=== PATIENT | female | born 1945 | race Caucasian/White ===

== ENCOUNTER 2017-05-07 13:54 | Outpatient (RCR) | payer MEDICARE, BC | END 2017-05-12 | LOC: RESP 13:54 | PROVIDERS: ATTEND Internal Medicine Critical Care Medicine | DX: J44.9 Chronic obstructive pulmonary disease, unspecified (principal) | CPT/HCPCS: G0238 ×6; G0424 ×6 ==

== ENCOUNTER 2017-06-06 14:00 | Outpatient (RCR) | payer MEDICARE, BC | END 2017-06-12 | LOC: RESP 14:00 | PROVIDERS: ATTEND Internal Medicine Critical Care Medicine | DX: J44.9 Chronic obstructive pulmonary disease, unspecified (principal) | CPT/HCPCS: G0238 ×3; G0424 ×3 ==

== ENCOUNTER 2017-06-25 14:00 | Outpatient (RCR) | payer MEDICARE, BC | END 2017-07-10 | LOC: RESP 14:00 | PROVIDERS: ATTEND Internal Medicine Critical Care Medicine | DX: J44.9 Chronic obstructive pulmonary disease, unspecified (principal) | CPT/HCPCS: 94060; 94727; 94729; G0238 ×2; G0424 ×2 ==

== ENCOUNTER 2017-07-25 13:34 | Outpatient (RCR) | payer MEDICARE, BC | END 2017-08-10 | LOC: RESP 13:34 | PROVIDERS: ATTEND Internal Medicine Critical Care Medicine | DX: J44.9 Chronic obstructive pulmonary disease, unspecified (principal) | CPT/HCPCS: G0238 ×2; G0424 ×2 ==